=== PATIENT | female | born 1965 | race Caucasian/White ===

== ENCOUNTER 2019-09-18 09:25 | Emergency (ER) | payer MEDICARE, BC ==
[2019-09-18] MEDS ORDERED: Acetaminophen/HYDROcodone 325-5 MG Tab PO ONE (09:39)
[2019-09-18] MEDS ORDERED: Ondansetron 4 MG Tab.DIS PO ONE (09:40)
[2019-09-18] MEDS ORDERED: Ketorolac 60 MG/2 ML SDV IM ONE (09:41)
[2019-09-18] MEDS ORDERED: SUMAtriptan 6 MG/0.5 ML SDV SUBCUT ONE (10:05)
--- NOTE | 2019-09-18 10:13 | EDM.PDOC ---
ED HPI GENERAL MEDICAL PROBLEM - General Stated Complaint: MIGRAINE Time Seen by Provider: 09/18/19 09:35 Source of Information: Reports: Patient History Limitations: Reports: No Limitations - History of Present Illness INITIAL COMMENTS - FREE TEXT/NARRATIVE: Patient presented to the ED because of 2 day h/o of headache. The pain is throbbing,8/10 behind the eyeball. There is associated nausea and photophobia. She took her imitrex 100 mg but didn't help. She denies having any fever or neck stiffness. Headache Pain Score (Numeric/FACES): 4 - Related Data Allergies Allergy/AdvReac Type Severity Reaction Status Date / Time adhesive tape Allergy Hives Verified 09/18/19 09:47 cefuroxime [From Ceftin] Allergy Nausea Verified 09/18/19 09:47 esomeprazole [From Nexium] Allergy Hives Verified 09/18/19 09:47 estradiol Allergy Hives Verified 09/18/19 09:47 Penicillins Allergy Hives Verified 09/18/19 09:47 rabeprazole Allergy Hives Verified 09/18/19 09:47 red dye Allergy Hives Verified 09/18/19 09:47 Sulfa (Sulfonamide Allergy Nausea Verified 09/18/19 09:47 Antibiotics) tramadol Allergy Hives Verified 09/18/19 09:47 Home Meds: Home Meds Famotidine 20 mg PO BID 09/18/19 [History] Metoprolol Tartrate 25 mg PO DAILY #15 tablet 09/18/19 [Rx] Pantoprazole [ProTONIX] 40 mg PO BID 09/18/19 [History] SUMAtriptan 100 mg PO ASDIRECTED PRN 09/18/19 [History] SUMAtriptan [Imitrex] 6 mg SQ ASDIRECTED PRN 09/18/19 [History] hydrOXYzine pamoate [Vistaril] 50 mg PO Q6H PRN #15 cap 09/18/19 [Rx] Past Medical History Gastrointestinal History: Reports: GERD Neurological History: Reports: Migraines ED ROS GENERAL - Review of Systems Review Of Systems: See Below Constitutional: Reports: No Symptoms HEENT: Reports: No Symptoms Respiratory: Reports: No Symptoms Cardiovascular: Reports: No Symptoms Endocrine: Reports: No Symptoms GI/Abdominal: Reports: No Symptoms Musculoskeletal: Reports: No Symptoms Skin: Reports: No Symptoms Neurological: Reports: Headache Psychiatric: Reports: No Symptoms - Physical Exam Exam: See Below Exam Limited By: No Limitations General Appearance: Alert, No Apparent Distress Ears: Normal External Exam, Normal Canal, Hearing Grossly Normal Nose: Normal Inspection, Normal Mucosa, No Blood Throat/Mouth: Normal Inspection, Normal Lips, Normal Teeth, Normal Gums Head Exam: Atraumatic, Normocephalic Neck: Normal Inspection, Supple, Non-Tender, Full Range of Motion Respiratory/Chest: No Respiratory Distress, Lungs Clear, Normal Breath Sounds, No Accessory Muscle Use, Chest Non-Tender Cardiovascular: Normal Peripheral Pulses, Regular Rate, Rhythm, No Edema, No Gallop GI/Abdominal: Normal Bowel Sounds, Soft, Non-Tender Back Exam: Normal Inspection, Full Range of Motion Extremities: Normal Inspection, Normal Range of Motion, Non-Tender Psychiatric: Normal Affect, Normal Mood Skin Exam: Warm, Dry Course - Vital Signs Text/Narrative:: toradol 60 mg IM Zofran ODT 4 mg po x1 [place] 5/325, 2 po x1 Imitrex 6 mg SC x1 metoprolol 25 mg po x1 Last Recorded V/S: Last Vital Signs Temp 36.4 C 09/18/19 10:55 Pulse 69 09/18/19 10:55 Resp 18 09/18/19 10:55 BP 155/92 H 09/18/19 10:55 Pulse Ox 97 09/18/19 10:55 - Orders/Labs/Meds Meds: Medications Discontinued Medications Generic Name Dose Route Start Last Admin Trade Name Sundarq PRN Reason Stop Dose Admin Hydrocodone Bitart/Acetaminophen 2 tab 09/18/19 09:39 09/18/19 09:48 [place] 325-5 Mg PO 09/18/19 09:40 2 tab ONETIME ONE Administration Ketorolac Tromethamine 60 mg 09/18/19 09:41 09/18/19 09:48 Toradol IM 09/18/19 09:42 60 mg ONETIME ONE Administration Metoprolol Tartrate 25 mg 09/18/19 10:15 09/18/19 10:29 Lopressor PO 09/18/19 10:16 25 mg ONETIME ONE Administration Ondansetron HCl 4 mg 09/18/19 09:40 09/18/19 09:48 Zofran Odt PO 09/18/19 09:41 4 mg ONETIME ONE Administration Sumatriptan Succinate 6 mg 09/18/19 10:05 09/18/19 10:11 Imitrex SUBCUT 09/18/19 10:06 6 mg ONETIME ONE Administration Departure - Departure Time of Disposition: 09:30 Disposition: Home, Self-Care 01 Condition: Good Clinical Impression: Migraine - Discharge Information Prescriptions: hydrOXYzine pamoate [Vistaril] 50 mg PO Q6H PRN #15 cap PRN Reason: Nausea Metoprolol Tartrate 25 mg PO DAILY #15 tablet Instructions: Recurrent Migraine Headache Referrals: PCP,Not In Area [Primary Care Provider] - Forms: ED Department Discharge Additional Instructions: please read discharge instructions on migraine continue imitrex oral and subcutaneous take ibuprofen 800 mg with tylenol 1000 mg every 8 hours as needed for pain visatril/hydroxyzine 50 mg every 6 hours as needed for nausea metoprolol 25 mg daily for prophylaxis follow up if symptoms persist Sepsis Event Note - Focused Exam Vital Signs: Vital Signs Temp Pulse Pulse Resp BP BP Pulse Ox 09/18/19 10:55 36.4 C 69 18 155/92 H 97 09/18/19 10:29 98 143/103 H 09/18/19 09:30 35.7 C L 98 16 143/103 H 97 Date Exam was Performed: 09/18/19 Time Exam was Performed: 15:05
[2019-09-18] MEDS ORDERED: Metoprolol Tartrate 25 MG Tab PO ONE (10:15)
== END 2019-09-18 11:00 | disposition home or self-care (01) ==
LOC: FB.ED 09:25
DX: G43.909 Migraine, unspecified, not intractable, without status migrainosus (principal); K21.9 Gastro-esophageal reflux disease without esophagitis; Z88.8 Allergy status to other drugs, medicaments and biological substances; Z88.0 Allergy status to penicillin; Z88.2 Allergy status to sulfonamides; Z91.048 Other nonmedicinal substance allergy status; Z79.899 Other long term (current) drug therapy
CPT/HCPCS: 96372; 99284; A9270; J1885; J3030